=== PATIENT | male | born 1990 | race Caucasian/White ===

== ENCOUNTER 2021-12-20 12:16 | Outpatient (RCR) | payer OTHER, SELFPAY ==
--- NOTE | 2021-12-20 15:22 | ST.OPIE ---
Visit Care Team Role Provider Type Carlos Oliveira MD Attending Provider Physician Family Provider Primary Care Provider Referring Provider Specialty: Ear, Nose, Throat Address: [address] [place] [address], [id number] Email: [email or web address] Speech-Language Pathology Initial Evaluation MOLDER MACHINE Voice Resonance Evaluation Start: 12/20/21 11:43 Freq: Status: Active Protocol: Document 12/20/21 11:43 KELLEY (Rec: 12/20/21 11:50 KELLEY [id number]) Voice and Resonance Assessment Session Time Visit Start Time 12:30 Visit Stop Time 13:15 Total Visit Minutes 45 Visit Information Visit Number Initial Evaluation, 1 Plan of Care Dates 12/20/21 - 08/27/22 Insurance Information Prime Next Note Type Next Note Type Treatment Note Referral Referring Physician Dr. Carlos Oliveira Reason for Referral Acute Laryngitis, Dysphonia, Nodules of Vocal Cords Setting Setting Outpatient Care Patient History Patient History The pt is a 31-yr-old male in his last week of active duty with the [employer]. 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 On advice from his PCP, the pt attempted vocal rest for 2 wks, which was inconsistent d/ t the teaching nature of his job and therefore was minimally effective. ENT laryngoscopy on 11/24/21 revealed normally mobile true vocal cords with very small sessile pale symmetric nodules at the junction of the anterior third and posterior two-thirds of each cord. No evidence of malignancy or morbid disease. The pt reports his vocal quality is largely back to baseline, but his voice continues to fatigue easily and feel tight during conversation. PMHx is significant for sleep apnea with CPAP use, pre- diabetes, and HTN. He takes medication for the latter two. The pt will be moving back to [place] upon [employer] nursing home, where he will work for his mom and have fewer demands on his voice. Hearing Hearing Level Impaired Auditory History Recent hearing assessment has demonstrated worsened ability since joining [employer] in 2014. Warrants monitoring. Pt does not wear hearing aids and exhibited no hearing difficulty in conversation. Vision Vision Status Impaired Comments Wears prescription glasses [place] Langauge Language(s) Spoken in the Home [place] Educational Status Education Level 1 yr college Occupational Status Occupation Status Retiring from [employer] 12/24; Works part-time with [employer]. Previous Therapy Previous Speech-Language Therapy No Oral Motor Assessment Source: [place] [employer] [employer] ([employer]). Oral-Motor Eval Completed No Subjective Subjective The pt arrived on time and provided medical history supplemental to medical records. - Laryngeal Performance S/Z Ratio S/Z Ratio 0.963 WNL Functional for Speech Yes Reduced Laryngeal Function Relative to No Respiration CAPE-V Overall Severity WFL Roughness 8% Mild after 40 min of conversation at normal loudness levels Breathiness WNL Strain 3% Minimal, present with increased vocal loudness Pitch WNL Loudness WNL Normal Resonance? Yes Maximum Phonation Time MPT Norms: Women (15-25) Men (25-35) Loudness (50-60 dB); Speaking Rate: Oral Reading of Sentences (190 Words Per Minute); Oral Reading of Paragraphs (160-170 WPM); Speaking Rate in Conversation (150-250 WPM) Maximum Phonation Time 27.5 WNL Maximum Phonation Time Adequate for Speech Jitter/Shimmer Norms: Jitter (Less than or equal to 1.040% - Frequency) Norms: Shimmer (Less than or equal to 3.810% - Amplitude) Jitter 0.185% WNL (3.26% with increased vocal loudness) Shimmer 1.775% WNL (2.26% with increased vocal loudness) Pitch [place] Pitch [place] WNL Pitch [place] Comments Range = 94-356 Hz Breath Support Breath Support At Rest Thoracic,Clavicular,Mixed Breath Support Sustained Phonation Thoracic,Clavicular,Mixed Breath Support Sustained Phonation Elevated clavical and Comment shoulders with deep breath Breath Support Conversation Mixed Speaks on Room Air Yes Voice Pitch Range Norms: Women (100-300 Hz) Men (70-250 Hz) Fundamental Frequency Norms: Women (Mean: 225 Hz; Range: 155-334 Hz) Men ( Mean: 128 Hz; Range: 85-196 Hz) Voice Pitch Normal Voice Loudness Normal Voice Phonatory-based Quality Normal Fundamental Frequency 108 Hz, WNL Intensity 76 dB WNL Paradoxical Vocal Fold Movement No Indications Resonance Nasal Resonance Normal Oral Resonance Normal Therapeutic Techniques Other Tactics Initiated education on vocal hygiene; alternative cough options; and subsystems of the voice with emphasis on the breath as the power of the voice. Initiated instruction of diaphragmatic breathing and using breath support vs laryngeal tension for voice projection. The pt verbalized understanding. Findings Findings Mild Impairment Voice/Resonance Assessment Assessment The pt presents mild dysphonia characterized by mild hoarseness after moderately lengthy conversation, indicating reduced vocal stamina. S/Z Ratio was WNL, and no other overt indicators of continued presence of vocal nodules was noted. Increased laryngeal and vocal strain and decreased vocal stability was perceived when the pt increased vocal loudness.Suspect vocal nodules resulted from a combination of factors: 1) frequent misuse of voice when the pt sings in his car; 2) overuse from extensive speaking, which appears to be part of the pt's friendly personality; and 3) vocal abuse from a 2-day professional speaking event in which the pt did not have access to a microphone. It is unlikely that any of these factors alone would have resulted in vocal nodules, but the combination created an ideal situation for them to form. The pt has been more cautious with his voice since its return, which seems to have helped his voice to heal. However, he continues to experience vocal fatigue, which indicates the VFs are not yet back to PLOF. Additionally, the presence of strain with increased loudness indicates continued misuse of the voice. Prognosis Rehabilitation Potential Excellent - Recommendations Treatment Recommended Yes Treatment Frequency/Duration Therapy will be limited to 1 session d/t pt's pending move out of state. Therapy Recommendations Voice therapy will target educating the pt on vocal hygiene and the subsystems of voice with emphasis on laryngeal relaxation and breath support for voice. Short Term Goals 1. The pt will demonstrate understanding of diaphragmatic breath support for voice by performing independently. 2. The pt will demonstrate laryngeal relaxation by independently performing yawn/ sigh technique with sustained phonation. 3. The pt will perform increased vocal loudness without increased vocal strain to reduce vocal overuse and abuse. Shelter Goals 1. The pt will verbalized and demonstrate understanding of proper voice control with breath vs laryngeal tension to promote vocal stamina and reduce recurrence of VF pathology with vocal use. MOLDER MACHINE Follow Up x1 Patient/Caregiver Education Patient/Family Education Described results of evaluation,Patient Understanding,Patient Needs More Info Vocally Abusive Behavior Behavior Rating Alcohol Consumption Never [place] Talking Never Arguing (peers/siblings/other) Never Athletic Activity Yelling Never Mouth Breathing Occasionally Caffeine Use Energy drinks & coffee, 1 each /day; Consumes ~1 gal water daily Calling from Distance Infrequently Cheerleading Participation Never Coughing/Sneezing Loudly Occasionally Crying Infrequently Use of Dairy Products Always Environmental Irritant Exposure Never Use of Inhalants Never Laughing Hard/Abusively Always Singing Abusively Always Participation In Plays Never Smoking Never Excessive Talking Always Making Animal /Toy Noises Never Yelling/Screaming Never
--- NOTE | 2021-12-28 17:56 | ST.OPDS ---
Visit Care Team Role Provider Type Carlos Oliveira MD Attending Provider Physician Family Provider Primary Care Provider Referring Provider Address: [address] [place] [address], [id number] CUTTING INSPECTOR Treatment Note CUTTING INSPECTOR Treatment Note Start: 12/20/21 11:43 Freq: Status: Active Protocol: Document 12/28/21 17:54 KELLEY (Rec: 12/28/21 17:55 KELLEY [id number]) Speech Pathology Treatment Note Visit Information Plan of Care Dates 12/20/21 - 08/27/22 Insurance Information [facility] Setting Treatment Setting Outpatient Care Visit Type Note Type Discharge Summary Subjective Observations/Patient Presentation The patient did not attend his last session. Per his verbal report, insurance coverage ended 12/24/21 and the pt planned to move out of state at that time as well. He is discharged from services. Objective Short Term Goals GOALS NOT MET 1. The pt will demonstrate understanding of diaphragmatic breath support for voice by performing independently. 2. The pt will demonstrate laryngeal relaxation by independently performing yawn/ sigh technique with sustained phonation. 3. The pt will perform increased vocal loudness without increased vocal strain to reduce vocal overuse and abuse. Shipping Inspector Goals GOAL NOT MET 1. The pt will verbalized and demonstrate understanding of proper voice control with breath vs laryngeal tension to promote vocal stamina and reduce recurrence of VF pathology with vocal use. Plan Therapy Recommendations Discharge from Speech Therapy
== END 2022-02-08 09:27 ==
LOC: SP 12:16
PROVIDERS: Family Provider Otolaryngology; PCP Otolaryngology; Referring Provider Otolaryngology; Visit Provider Otolaryngology
DX: R49.0 Dysphonia (principal); J38.2 Nodules of vocal cords; J04.0 Acute laryngitis
CPT/HCPCS: 92507; 92520; 92524